=== PATIENT | male | born 1955 | race African-American/Black ===

== ENCOUNTER 2018-11-13 13:00 | Emergency (ER) | payer BC ==
[~2018-11-13] VITALS: Ht 182.9 cm; Wt 100.0 kg
[2018-11-13] MEDS ORDERED: CYCLOBENZAPRINE 10MG TABLET PO ONE (14:00)
[2018-11-13] MEDS ORDERED: KETOROLAC 30MG/ML VIAL IM ONE (14:00)
[2018-11-13] MEDS ORDERED: HYDROCODONE/ACETAMINOPHEN 5/325MG TABLET PO ONE (15:15)
[2018-11-13 15:49] VITALS: BP 127/71
== END 2018-11-13 15:50 | disposition home or self-care (01) ==
LOC: EDSEX 13:00 → ER 13:16
DX: M54.40 Lumbago with sciatica, unspecified side (principal); M25.551 Pain in right hip
CPT/HCPCS: 96372; 99283; J1885